=== PATIENT | female | born 1950 | race Caucasian/White ===

== ENCOUNTER 2016-08-06 22:31 | Emergency (ER) | payer OTHER, MEDICARE ==
[~2016-08-06] VITALS: Ht 160 cm; Wt 74.4 kg
[2016-08-06 22:43] VITALS: BP 161/76
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
[2016-08-07] MEDS ORDERED: ELIQUIS2.5 M1 PO (00:52)
[2016-08-07] MEDS ORDERED: OXYCODONE HCL5 M1 PO (00:52)
== END 2016-08-07 01:20 ==
LOC: ERH 22:31
DX: Z76.0 Encounter for issue of repeat prescription (principal)

== ENCOUNTER 2016-08-12 20:45 | Emergency (ER) | payer OTHER, MEDICARE ==
[~2016-08-12 20:45] MED LIST: ELIQUIS2.5 M1 PO; OXYCODONE HCL5 M1 PO
[2016-08-12 20:53] VITALS: BP 148/74
[2016-08-12] MEDS ORDERED: BACLOFEN10 M1 PO (22:21)
[2016-08-12] MEDS ORDERED: ULTRAM50 M1 PO (22:21)
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
[2016-08-12] MEDS ORDERED: ZOFRAN ODT4 M1 SL (23:51)
== END 2016-08-12 22:23 ==
LOC: ERH 20:45
DX: S82.142A Displaced bicondylar fracture of left tibia, initial encounter for closed fracture (principal); V03.90XA Pedestrian on foot injured in collision with car, pick-up truck or van, unspecified whether traffic or nontraffic accident, initial encounter
CPT/HCPCS: 99281

== ENCOUNTER 2016-08-22 17:39 | Emergency (ER) | payer OTHER, MEDICARE ==
[~2016-08-22] VITALS: Ht 160 cm; Wt 74.4 kg
[~2016-08-22 17:39] MED LIST changes: +BACLOFEN10 M1 PO; +ULTRAM50 M1 PO; +ZOFRAN ODT4 M1 SL
[2016-08-22] MEDS ORDERED: ULTRAM50 M1 PO ×2 (18:44→18:52)
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
[2016-08-22 19:20] VITALS: BP 168/78
== END 2016-08-22 19:21 ==
LOC: ERH 17:39
DX: S82.142D Displaced bicondylar fracture of left tibia, subsequent encounter for closed fracture with routine healing (principal); G89.29 Other chronic pain

== ENCOUNTER 2016-10-22 08:00 | Emergency (ER) | payer OTHER, MEDICARE ==
[~2016-10-22] VITALS: Ht 160 cm; Wt 68.0 kg
[2016-10-22 08:10] VITALS: BP 143/89
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
[2016-10-22] MEDS ORDERED: LASIX20 M1 PO ×2 (08:58→09:32)
[2016-10-22] MEDS ORDERED: POTASSIUM CHLO10 ME3 PO ×2 (08:58→09:32)
== END 2016-10-22 09:25 ==
LOC: ERH 08:00
DX: R60.9 Edema, unspecified (principal); M19.92 Post-traumatic osteoarthritis, unspecified site

== ENCOUNTER 2017-08-30 23:10 | Emergency (ER) | payer OTHER, MEDICARE ==
[~2017-08-30] VITALS: Ht 157.5 cm; Wt 90.7 kg
[~2017-08-30 23:10] MED LIST changes: +ASPIRIN EC81 M1 PO; +CEPHALEXIN500 M3 PO; +ELIQUIS5 M1 PO; +LASIX20 M1 PO; +MULTIVITAMINS1 EAC9 PO; +POTASSIUM CHLO10 ME3 PO; +XARELTO15 M1 PO; +XARELTO20 M2 PO
[2017-08-30 23:13] VITALS: BP 149/79
== END 2017-08-31 00:10 | disposition admitted as inpatient to this hospital (09) ==
LOC: ERH 23:10
DX: M25.561 Pain in right knee (principal); V49.9XXA Car occupant (driver) (passenger) injured in unspecified traffic accident, initial encounter

== ENCOUNTER 2017-09-06 03:38 | Emergency (ER) | payer OTHER, MEDICARE ==
[~2017-09-06] VITALS: Ht 157.5 cm; Wt 72.6 kg
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
[2017-09-06 03:54] VITALS: BP 105/73
--- NOTE | 2017-09-06 04:41 | RADIOLOGY REPORT ---
EXAMINATION: XR KNEE, RIGHT CLINICAL INFORMATION: Pain and swelling. COMPARISON: None TECHNIQUE: Four views of the right knee. FINDINGS: No fracture. No dislocation. No joint effusion. There is mild joint narrowing of the medial femoral tibial joint with chondrocalcinosis of the medial meniscus. No spur or erosion. There is generalized subcutaneous edema IMPRESSION: 1. No acute osseous abnormality. 2. No joint effusion. There is generalized subcutaneous edema. 3. 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
== END 2017-09-06 05:10 ==
LOC: ERH 03:38
DX: S80.01XA Contusion of right knee, initial encounter (principal); V49.40XA Driver injured in collision with unspecified motor vehicles in traffic accident, initial encounter; Y92.9 Unspecified place or not applicable
CPT/HCPCS: 73562-RT